=== PATIENT | female | born 1970 | race Caucasian/White ===

== ENCOUNTER → 2021-06-08 10:37 | Outpatient (CLI) | payer BC, SELFPAY ==
--- NOTE | ~2021-06-08 | XR_ITS ---
XR knee LT 3V 06/08/2021 11:11 Indication: Left knee pain Procedure: 3 views left knee Comparison: No prior studies for comparison. Findings: No fracture, subluxation or dislocation. No significant joint effusion. No foreign bodies. No soft tissue abnormality. Impression: 1: No significant bone or joint abnormality. Reviewed, dictated and finalized at location A. [employer] Impression: 1: No significant bone or joint abnormality.
--- NOTE | ~2021-06-08 | XR_ITS ---
XR knee RT 2V 06/08/2021 11:10 Indication: Right knee pain Procedure: 3 views right knee Comparison: No prior studies for comparison. Findings: No fracture, subluxation or dislocation. There is anatomic alignment. No significant joint effusion. No foreign bodies. Impression: 1: No acute bone or joint abnormality. Reviewed, dictated and finalized at location A. [employer] Impression: 1: No acute bone or joint abnormality.
== END ==
PROVIDERS: Visit Provider Physician Assistant Medical
DX: M25.561 Pain in right knee (principal); M25.562 Pain in left knee
CPT/HCPCS: 73560; 73562